=== PATIENT | female | born 1960 | race Caucasian/White ===

== ENCOUNTER 2022-01-11 10:12 | Outpatient (CLI) | payer OTHER | END 2022-01-11 10:13 | disposition home or self-care (01) | LOC: CSHMAMMO 10:12 | PROVIDERS: ATTEND Family Medicine | DX: Z12.31 Encounter for screening mammogram for malignant neoplasm of breast (principal); Z85.3 Personal history of malignant neoplasm of breast | CPT/HCPCS: 77063; 77067 ==

== ENCOUNTER 2022-08-16 07:53 | Outpatient (CLI) | payer OTHER | END 2022-08-16 07:54 | disposition home or self-care (01) | LOC: CSHCT 07:53 | PROVIDERS: ATTEND Family Medicine | DX: R10.32 Left lower quadrant pain (principal); G89.29 Other chronic pain; Z53.9 Procedure and treatment not carried out, unspecified reason | CPT/HCPCS: 82565 ==

== ENCOUNTER 2022-08-16 09:00 | Emergency (ER) | payer OTHER ==
[2022-08-16 09:34] LABS: #Eosinphils 0.1 10x3/uL (0.0-0.5); #Monocytes 0.5 10x3/uL (0.0-1.1); #Neutrophils 3.1 10x3/uL (1.5-8.4); %Basophils 0.6 % (0.0-2.0); %Eosinophils 1.5 % (0.0-6.0); %Lymphocytes 28.6 % (18.0-47.0); %Monocytes 8.9 % (0.0-10.0); %Neutrophils 60.2 % (40.0-75.0); Hemoglobin 12.2 g/dL (12.0-15.5); Mean Corpuscular HGB CONC 33.7 g/dL (32.0-36.0); Mean Corpuscular Hemoglobin 30.2 pg (27.0-33.0); Mean Corpuscular Volume 89.6 fl (81.6-98.3); Mean Platelet Volume 9.4 fl (7.4-10.4); Platelet Count 239 10x3/uL (150-450); RBC Distribution Width 12.8 % (11.5-14.5); Red Blood Cell (RBC) Count 4.04 10x6/uL (3.90-5.03); White Blood Cell (WBC) Count 5.2 10x3/uL (3.5-10.5)
[2022-08-16] MEDS ORDERED: Iopamidol 300 61% 100 ML VIAL FS ONE (09:43)
[2022-08-16 09:46] LABS: ALT (SGPT) 14 U/L (8-55); AST (SGOT) 22 U/L (5-34); Alkaline Phosphatase 68 U/L (40-110); Anion Gap 13 mmol/L (10-20); BUN (Urea Nitrogen) 14 mg/dL (9.8-20.1); Bilirubin, Total 0.5 mg/dL (0.2-1.2); Calc. Creatinine Clearance 0 mL/min (70-130); Calcium 8.2 mg/dL (7.8-10.44); Carbon Dioxide 23 mmol/L (23-31); Chloride 109 mmol/L (98-107); Estimated GFR 79; Globulin 1.8 g/dL (2.4-3.5); Glucose 125 mg/dL (80-115); Lipase 20 U/L (8-78); Magnesium 2.2 mg/dL (1.6-2.6); Potassium 3.9 mmol/L (3.5-5.1); Protein, Total 5.8 g/dL (5.8-8.1); Sodium 141 mmol/L (136-145)
== END 2022-08-16 10:22 | disposition home or self-care (01) ==
LOC: CSHERS 09:00
DX: R55 Syncope and collapse (principal); R93.5 Abnormal findings on diagnostic imaging of other abdominal regions, including retroperitoneum
CPT/HCPCS: 74177; 80053; 83605; 83690; 83735; 84484; 85025; 93005; 96360; Q9967

== ENCOUNTER 2023-01-14 09:54 | Outpatient (CLI) | payer OTHER | END 2023-01-14 09:55 | disposition home or self-care (01) | LOC: CSHMAMMO 09:54 | PROVIDERS: ATTEND Family Medicine | DX: Z12.31 Encounter for screening mammogram for malignant neoplasm of breast (principal); Z85.3 Personal history of malignant neoplasm of breast; Z98.890 Other specified postprocedural states | CPT/HCPCS: 77063; 77067 ==

== ENCOUNTER 2024-01-21 11:23 | Outpatient (CLI) | payer OTHER | END 2024-01-21 11:24 | disposition home or self-care (01) | LOC: CSHMAMMO 11:23 | PROVIDERS: ATTEND Family Medicine | DX: Z12.31 Encounter for screening mammogram for malignant neoplasm of breast (principal); Z85.3 Personal history of malignant neoplasm of breast | CPT/HCPCS: 77063; 77067 ==